=== PATIENT | female | born 1970 | race Caucasian/White ===

== ENCOUNTER 2019-01-18 09:03 | Outpatient (CLI) | payer MEDICAID ==
[2019-01-18 10:17] LABS: BASOPHILS # (AUTO) 0.1 10^3/uL (0.0-0.1); BASOPHILS % (AUTO) 0.6 %; EOSINOPHILS # (AUTO) 0.3 10^3/uL (0.0-0.7); HGB - HEMOGLOBIN 15.1 g/dL (12.0-16.0); LYMPHOCYTES # (AUTO) 3.6 10^3/uL (1.5-3.5); LYMPHOCYTES % (AUTO) 41.9 %; MEAN CORPUSCULAR HEMOGLOBIN 30.5 pg (27.0-31.0); MEAN CORPUSCULAR HGB CONC 33.6 g/dL (32.0-36.0); MEAN CORPUSCULAR VOLUME 90.7 fL (81.0-99.0); MEAN PLATELET VOLUME 7.5 fL (7.9-10.8); MONOCYTES # (AUTO) 0.5 10^3/uL (0.0-1.0); MONOCYTES % (AUTO) 5.5 %; NEUTROPHILS # (AUTO) 4.1 10^3/uL (1.5-6.6); PLT - PLATELET COUNT 297 10^3/uL (130-450); RED BLOOD COUNT 4.94 10^6/uL (4.20-5.40); RED CELL DISTRIBUTION WIDTH 12.3 % (12.0-15.0); WHITE BLOOD COUNT 8.6 x10^3/uL (4.8-10.8)
[2019-01-18 10:29] LABS: HEMOGLOBIN A1C 0.57 g/dL; HEMOGLOBIN A1C % 5.4 % (4.6-6.2)
[2019-01-18 10:32] LABS: ALBUMIN 4.6 g/dL (3.2-5.5); ALBUMIN/GLOBULIN RATIO 1.5 (1.0-2.2); ALKALINE PHOSPHATASE 62 IU/L (42-121); ALT ALANINE AMINOTRANSFERASE 24 IU/L (10-60); AST ASPARTATE AMINOTRANSFERASE 25 IU/L (10-42); BILIRUBIN,TOTAL 1.1 mg/dL (0.2-1.0); BUN - BLOOD UREA NITROGEN 14 mg/dL (6-20); CALCIUM 9.7 mg/dL (8.5-10.3); CARBON DIOXIDE - CO2 24 mmol/L (21-32); CHLORIDE 103 mmol/L (101-111); CHOL/HDL RATIO 3.1 (<4.4); CHOLESTEROL 301 mg/dL; CREATININE 0.9 mg/dL (0.4-1.0); GFR - MDRD 66 (>89); GLUCOSE 96 mg/dL (70-100); HDL CHOLESTEROL 97 mg/dL; LDL CHOLESTEROL,CALCULATED 183 mg/dL; LDL/HDL RATIO 1.9 (<4.4); SODIUM 136 mmol/L (135-145); TOTAL PROTEIN 7.6 g/dL (6.7-8.2); VLDL CHOLESTEROL 21 mg/dL
== END 2019-01-18 09:04 | disposition home or self-care (01) ==
LOC: LAB.F 09:03
PROVIDERS: ATTEND Registered Nurse
DX: Z00.00 Encounter for general adult medical examination without abnormal findings (principal); N95.8 Other specified menopausal and perimenopausal disorders; F41.8 Other specified anxiety disorders
CPT/HCPCS: 36415; 80050; 80061; 83036; 83721